=== PATIENT | male | born 1960 | race Caucasian/White ===

== ENCOUNTER 2018-10-14 20:59 | Inpatient (IN) | payer BC, OTHER ==
[~2018-10-14] VITALS: Ht 177.8 cm; Wt 107.3 kg
[2018-10-14] MEDS ORDERED: CARDIAC IV ONE (22:25)
[2018-10-14] MEDS ORDERED: NORMAL SALINE IV ONE (22:25)
[2018-10-14] MEDS ORDERED: ketorolac trometh. 30mg/ml inj. IV ONE (22:25)
[2018-10-14] MEDS ORDERED: normal saline 1000ML IV soln IVB ONE (22:25)
[2018-10-14] MEDS ORDERED: ondansetron/PF 4mg/2ml inj IV ONE (22:25)
[2018-10-14] MEDS ORDERED: LIDOCAINE 2% IV ONE (22:25)
[2018-10-14 22:35] LABS: BASOPHILS % (AUTO) 0.2 % (0-1); EOSINOPHILS % (AUTO) 0.5 % (0-6); HEMATOCRIT 46.4 % (42.0-52.0); HEMOGLOBIN 15.4 g/dl (14.0-17.9); LYMPHOCYTES # (AUTO) 0.7 X10'3 (1.1-4.8); LYMPHOCYTES % (AUTO) 7.2 % (21-51); MEAN CORPUSCULAR HGB CONC 33.2 % (33.0-36.5); MEAN CORPUSCULAR VOLUME 96.5 FL (78-98); MEAN PLATELET VOLUME 8.7 FL (7.4-10.4); MONOCYTES # (AUTO) 0.3 X10'3 (0-0.9); MONOCYTES % (AUTO) 3.3 % (2-12); NEUTROPHILS # (AUTO) 8.4 X10'3 (1.8-7.7); NEUTROPHILS % (AUTO) 88.8 % (42-75); PLATELET COUNT 199 X10'3 (140-440); RED BLOOD COUNT 4.81 X10'6 (4.70-6.10); RED CELL DISTRIBUTION WIDTH 12.7 % (11.5-14.5); WHITE BLOOD COUNT 9.4 X10'3 (4.5-11.0)
[2018-10-14] MEDS: HYDROmorphone inj. 0.5 MG/0.5 ML DISP.SYRIN IV PRN (22:36)
[2018-10-14 22:47] LABS: ALANINE AMINOTRANSFERASE 47 U/L (12-78); ALBUMIN 4.2 G/DL (3.4-5.0); ALBUMIN/GLOBULIN RATIO 1.2 (1.1-1.5); ALKALINE PHOSPHATASE 67 IU/L (46-116); ANION GAP 12 (8-16); ASPARTATE AMINO TRANSFERASE 24 U/L (10-37); BILIRUBIN,TOTAL 0.6 MG/DL (0.1-1.0); BLOOD UREA NITROGEN 28 MG/DL (7-18); BUN/CREATININE RATIO 15.9 (5.4-32.0); CALCIUM 9.2 MG/DL (8.5-10.1); CHLORIDE 101 MMOL/L (99-107); CREATININE 1.76 MG/DL (0.60-1.10); GLUCOSE 156 MG/DL (70-104); LIPASE 166 U/L (73-393); POTASSIUM 4.5 MMOL/L (3.5-5.1); SODIUM 137 MMOL/L (135-145); TOTAL CARBON DIOXIDE 23.6 MMOL/L (24-32); TOTAL PROTEIN 7.7 G/DL (6.4-8.2); eGFR 40 ML/MIN
[2018-10-14 23:33] LABS: CLARITY,URINE CLEAR (Clear); COLOR,URINE YELLOW (Yellow); PROTEIN,URINE NEGATIVE (Neg); UA COLLECTION TYPE URINAL
[2018-10-14 23:34] LABS: GLUCOSE, URINE NEGATIVE (Neg); KETONES,URINE NEGATIVE (Neg); LEUKOCYTE ESTERASE ,URINE NEGATIVE (Neg); NITRITES, URINE NEGATIVE (Neg); OCCULT BLOOD,URINE LARGE (Neg); UROBILINOGEN,URINE 0.2 E.U/dL (0.2-1.0)
[2018-10-14 23:39] LABS: BACTERIA,URINE NONE SEEN /HPF (Neg); SQUAMOUS EPITHELIAL CELL,UR FEW /LPF (FEW); WBC,URINE 0-4 /HPF (0-4)
[2018-10-15] MEDS ORDERED: dextrose 5%-1/2 normal saline 1,000 ML IV SCH (01:29)
[2018-10-15] MEDS ORDERED: metoclopramide 5 mg/ml inj IV PRN (01:30)
[2018-10-15] MEDS ORDERED: diphenhydrAMINE 50 mg/ml inj IV PRN (01:30)
[2018-10-15] MEDS ORDERED: HYDROcodone/acetaminophen 10/325mg tab PO PRN (01:30)
[2018-10-15] MEDS ORDERED: bisacodyl 10mg suppository rectal RC PRN (01:30)
[2018-10-15] MEDS ORDERED: acetaminophen 325mg tablet PO PRN ×2 (01:30)
[2018-10-15] MEDS ORDERED: magnesium hydroxide 30ml (MOM) UD suspension PO PRN (01:30)
[2018-10-15] MEDS ORDERED: ondansetron/PF 4mg/2ml inj IV PRN (01:30)
[2018-10-15] MEDS ORDERED: morphine 4 MG/ML inj SYRINge IV PRN (01:30)
[2018-10-15] MEDS ORDERED: HYDROmorphone 1 mg/ml syringe IV PRN (01:30)
[2018-10-15] MEDS ORDERED: mag hydrox/Alum hydrox/simeth 30ml oral suspension PO PRN (01:30)
[2018-10-15] MEDS ORDERED: acetaminophen 650mg rectal suppository RC PRN (01:30)
[2018-10-15] MEDS ORDERED: diphenhydrAMINE 25mg capsule PO PRN (01:30)
[2018-10-15] MEDS ORDERED: NEBI10TA2 PO (01:39)
[2018-10-15] MEDS ORDERED: ALLO100T PO (01:39)
[2018-10-15 02:43] LABS: MAGNESIUM 2.2 MG/DL (1.5-2.4); PHOSPHORUS 3.5 MG/DL (2.3-4.5)
[2018-10-15] MEDS: HYDROmorphone inj. 0.5 MG/0.5 ML DISP.SYRIN IV PRN (02:44)
[2018-10-15] MEDS ORDERED: HYDR-4353 PO (07:17)
[2018-10-15] MEDS ORDERED: KETO10TA2 PO (07:17)
[2018-10-15] MEDS ORDERED: LEVO500T2 PO (07:17)
[2018-10-15] MEDS ORDERED: TADA20TA PO (07:17)
[2018-10-15] MEDS ORDERED: ONDA4TAB6 PO (07:17)
[2018-10-15 07:50] VITALS: BP 121/71
[2018-10-15] MEDS ORDERED: pantoprazole 40 MG vial IV SCH (08:00)
[2018-10-15] MEDS ORDERED: heparin, porcine 5000 units/ml vial SQ SCH (08:00)
[2018-10-15] MEDS ORDERED: docusate sod 100mg capsule PO SCH (08:00)
[2018-10-15] MEDS ORDERED: temazepam 15mg capsule PO PRN (21:00)
== END 2018-10-15 07:54 | disposition home or self-care (01) | DRG 694 ==
LOC: ER 21:00 → ED HOLD 10-15 01:29
PROVIDERS: ADMIT Family Medicine; ATTEND Family Medicine
DX: N13.2 Hydronephrosis with renal and ureteral calculous obstruction (principal); I10 Essential (primary) hypertension; N17.9 Acute kidney failure, unspecified; N26.1 Atrophy of kidney (terminal); N28.1 Cyst of kidney, acquired; Z87.442 Personal history of urinary calculi
CPT/HCPCS: 36415; 74176; 80053; 81001; 83690; 83735; 83880; 84100; 85025; 96374; 96375; 99285; C9113; G0378; J1170; J1885; J2001; J2405; J7030